=== PATIENT | female | born 1975 | race Caucasian/White ===

== ENCOUNTER 2022-07-10 07:23 | Day surgery (SDC) | payer BC ==
[2022-07-10] MEDS ORDERED: Ringers Lactate 1,000 ML IV ONE (07:51)
[2022-07-10] MEDS ORDERED: ROCURONIUM 50 MG/5 ML VIAL IV ONE (08:45)
[2022-07-10] MEDS ORDERED: FENTANYL CITR 100 MCG/2 ML ONE (08:45)
[2022-07-10] MEDS ORDERED: ONDANSETRON 4 MG/2 ML VIAL ONE ×2 (08:45→11:34)
[2022-07-10] MEDS ORDERED: LIDOCAINE 2% MPF 5 ML VIAL ONE (08:45)
[2022-07-10] MEDS ORDERED: propofoL 200 MG/20 ML VIAL IV ONE (08:45)
[2022-07-10] MEDS ORDERED: MIDAZOLAM HCL 2 MG/2 ML INJ ONE (08:45)
[2022-07-10] MEDS ORDERED: LIDOCAINE 1% W/EPI 1:100,000 10 ML VIAL ONE (09:12)
[2022-07-10] MEDS ORDERED: BUPIVACAINE 0.5% PF 10 ML VIAL ONE (09:12)
[2022-07-10] MEDS ORDERED: GLYCOPYRROLATE 0.2 MG/ML SYR ONE (09:38)
[2022-07-10] MEDS ORDERED: NEOSTIGMINE 1 MG/ML -10 ML VIAL ONE (09:43)
[2022-07-10 09:47] LABS: Urine Specific Gravity/Preg >1.030 (1.005-1.030)
[2022-07-10] MEDS ORDERED: KETOROLAC 30 MG/ML INJ ONE (10:00)
[2022-07-10] MEDS: FENTANYL CITR 100 MCG/2 ML ONE ×3 (10:20→10:33)
[2022-07-10] MEDS: HYDROMORPHONE HCL 1 MG/ML INJ ONE ×2 (10:38→10:45)
[2022-07-10 10:41] VITALS: O2SAT 98
[2022-07-10] MEDS ORDERED: CODEINE 12mg/APAP 120mg PER 5 ML UCUP ONE (11:10)
[2022-07-10 11:22] VITALS: BP 109/64; TEMP 97
[2022-07-10] MEDS ORDERED: PROMETHAZINE INJ 25 MG/ML AMP ONE (12:14)
--- NOTE | 2022-07-10 12:32 | OP ---
Date of Procedure: 07/10/2022 Surgeon: KAYLENE VALE Preoperative Diagnosis: Chronic tonsillitis. Postoperative Diagnosis: Chronic tonsillitis. Procedure: Tonsillectomy. Anesthesia: General endotracheal anesthesia was administered. I also infiltrated approximately 8 mL of 1% lidocaine with 1:100,000 epinephrine into bilateral tonsillar fossae and soft palate. Estimated Blood Loss: Less than 5 mL. Specimens: Bilateral tonsils submitted to pathology for evaluation. Findings: Bilateral cryptic tonsils 2/4 in size. Complications: None. Disposition: Stable. The patient tolerated the procedure well. Indications For Procedure: The patient is a pleasant 47-year-old female, who presented to my outpati ent clinic with chronic tonsil infections that have been refractory to outpatient oral antibiotics. These were indications to bring the patient to operative suite for the above mentioned procedure. Sh e understood, all questions were answered. Risks versus benefits and complications were explained in detail and a consent form was signed, which was placed on the chart. Description Of Procedure: The patient was transferred from the preoperative holding area to the oper ative suite by Department of Anesthesia, placed on the operating table supine, sedated intubated in n ormal fashion. Table was rotated 90 degrees and the patient was placed into Trendelenburg. Head and eyes were covered with sterile blue towels and moist Ray-Sharon was placed over the upper lip for prote ction. A McIvor retractor was introduced into the right oral commissure and directed along the endot gisselle tube and suspended from the Bassett stand. Tonsils were removed by retracting the superior pole s midline with straight Allis clamps and then dissecting through the mucosa down the peritonsillar fa scial plane with monopolar electrocautery on the setting of 20 of coagulation. Dissection continued within the planes whereby the inferior poles were amputated with suction Bovie. The patient had slig ht oozing of blood secondary to elevated blood pressure. Once controlled, hemostasis was achieved wi th suction Bovie and then I placed approximately 5 mL of Floseal into bilateral tonsil fossa and held in place for approximately 1 minute. I retracted the soft palate anteriorly and visualized the alexander oid cavity and there was no adenoid tissue. A flexible orogastric tube was inserted into the esophag us and stomach, and all fluid contents were removed. The patient was then de-suspended from the Bassett stand. The McIvor retractor was removed. The patien t's jaw was checked and found to be in proper alignment. The head turban was removed and she was tra nsferred back to Department of Anesthesia in stable condition where she was subsequently awakened, ex tubated, and transferred to postoperative care unit. She will be discharged home on analgesic medica tion, will follow up in 1-2 weeks or sooner if needed. JACKY/MAGGY Voice ID: [id number] Report ID: [id number]
== END 2022-07-10 12:59 | disposition home or self-care (01) ==
LOC: OR 07:23
PROVIDERS: ATTEND Otolaryngology Facial Plastic Surgery
PROC: 0CTPXZZ Resection of Tonsils, External Approach (ICD-10-PCS; principal; 2022-07-10 08:45)
DX: J35.01 Chronic tonsillitis (principal)
CPT/HCPCS: 81025; 88304; J1170; J2001; J2250; J2405; J2550; J2704; J2710; J3010; J7120